=== PATIENT | male | born 1955 | race Caucasian/White ===

== ENCOUNTER 2016-11-15 14:24 | Inpatient (IN) | payer OTHER, MEDICARE ==
[~2016-11-15] VITALS: Ht 99.1 cm; Wt 83.0 kg
[~2016-11-15 14:24] MED LIST: AMIO200T2 PO; ASPI81TA2 PO; ATOM60CA PO; BLOO-140 IN; BUPR-96 PO; CARI350T27 PO; FAMO20TA8 PO; FERR1TAB44 PO; GABA-532 PO; HYDR-548 PO; INSU100V7 SQ
[2016-11-15] MEDS ORDERED: IV NS 0.9% 500 ML IV ONE (14:44)
[2016-11-15] MEDS ORDERED: IV SET PRIMARY PUMP SET 1 EA INFUS.SET MC ONE ×5 (14:44→15:58)
[2016-11-15 14:58] LABS: EOSINOPHILS # (AUTO) 0.5 /CMM (0.0-0.7); EOSINOPHILS % (AUTO) 3.6 % (0.0-6.0)
[2016-11-15] MEDS ORDERED: Magnesium 1GM/D5W 100ML PREMIX 200 ML IV ONE (14:59)
[2016-11-15] MEDS ORDERED: Magnesium 1GM/D5W 100ML PREMIX PIGGYBACK IV ONE (15:00)
[2016-11-15] MEDS ORDERED: AMIODARONE 150 MG/3 ML VIAL IV ONE (15:00)
[2016-11-15] MEDS ORDERED: IV NS 0.9% 500 ML BAG IV ONE (15:00)
[2016-11-15 15:01] LABS: DIFF TOTAL % 100 %; MEAN CORPUSCULAR HEMOGLOBIN 23 PG (26.0-33.0); MEAN CORPUSCULAR HGB CONC 31 g/dl (31.0-36.0); MEAN CORPUSCULAR VOLUME 75 fL (80-96); MONOCYTES # (AUTO) 1.1 /CMM (0.1-1.30); NEUTROPHILS # (AUTO) 11.6 /CMM (1.8-8.9); NEUTROPHILS % (AUTO) 81.4 % (43.0-81.0); PLATELET COUNT (AUTO) 334 /CMM (150-450); RED BLOOD CELL COUNT(AUTO) 5.86 MIL/uL (4.5-6.0); WHITE BLOOD COUNT (AUTO) 14.3 K/uL (4.3-11.0)
[2016-11-15 15:08] LABS: HEMATOCRIT 44 % (39-51); HEMOGLOBIN 13.4 g/dL (13.5-17.5)
[2016-11-15 15:14] LABS: TROPONIN I 0.15 ng/mL (0.00-0.056)
[2016-11-15 15:27] LABS: ALBUMIN 3.8 g/dL (3.4-5.0); BILIRUBIN,DIRECT 0.2 mg/dL (0.0-0.2); BILIRUBIN,TOTAL 0.6 mg/dL (0.2-1.0); CREATININE 1.4 mg/dL (0.6-1.3); INDIRECT BILIRUBIN 0.4 mg/dL (0.0-1.1)
[2016-11-15] MEDS ORDERED: AMIODARONE 900 MG in IV D5W 482 ML IV PRN ×2 (15:30→19:00)
[2016-11-15] MEDS ORDERED: AMIODARONE 150 MG in IV D5W 100 ML IV ONE (15:30)
[2016-11-15 15:33] LABS: POTASSIUM 2.7 mmol/L (3.5-5.1)
[2016-11-15 15:54] LABS: INR 1.08 (0.87-1.13); PROTHROMBIN TIME 11.3 SECS (9.5-12.7)
[2016-11-15] MEDS ORDERED: POTASSIUM CL. PREMIX PERIPHER. 50 ML ONE (15:56)
[2016-11-15] MEDS ORDERED: IV SET PRIMARY 1 EA INFUS.SET MC ONE (15:56)
[2016-11-15] MEDS ORDERED: POTASSIUM CL. PREMIX PERIPHER. 150 ML ONE (15:58)
[2016-11-15] MEDS ORDERED: POTASSIUM CHLORIDE 20 MEQ POWDER PACKET ONE (15:58)
[2016-11-15] MEDS ORDERED: POTASSIUM CHLORIDE 10 MEQ/50 ML PREMIXED IVPB FOR PERIPHERAL LINE IV ONE (16:00)
[2016-11-15] MEDS ORDERED: POTASSIUM CHLORIDE 20 MEQ POWDER PACKET PO ONE (16:00)
[2016-11-15] MEDS ORDERED: ASCO500T9 PO (16:15)
[2016-11-15] MEDS ORDERED: PANT40TA2 PO (16:15)
[2016-11-15] MEDS ORDERED: TRAM50TA2 PO (16:15)
[2016-11-15] MEDS ORDERED: POTA20TA83 PO (16:15)
[2016-11-15] MEDS ORDERED: DOCU-25 PO (16:15)
[2016-11-15] MEDS ORDERED: FERR324T PO (16:15)
[2016-11-15] MEDS ORDERED: ASPI81TA2 PO (16:15)
[2016-11-15] MEDS ORDERED: MAGN200T5 PO (16:15)
[2016-11-15] MEDS ORDERED: CLON0.5T4 PO (16:15)
[2016-11-15] MEDS ORDERED: SIME80TA15 PO (16:15)
[2016-11-15] MEDS ORDERED: ATOR40TA PO (16:15)
[2016-11-15] MEDS ORDERED: DIGO125T PO (16:15)
[2016-11-15] MEDS ORDERED: GABA-532 PO (16:15)
[2016-11-15] MEDS ORDERED: CYAN10009 PO (16:15)
[2016-11-15] MEDS ORDERED: CLOP75TA2 PO (16:15)
[2016-11-15] MEDS ORDERED: TORS100T15 PO (16:15)
[2016-11-15] MEDS ORDERED: METO5TAB7 PO (16:15)
[2016-11-15] MEDS ORDERED: APIX2.5T PO (16:15)
[2016-11-15] MEDS ORDERED: OMEG1CAP PO (16:15)
[2016-11-15] MEDS ORDERED: SPIR50TA PO (16:15)
[2016-11-15] MEDS ORDERED: CHOL100044 PO (16:15)
[2016-11-15 17:39] VITALS: BP 105/74
[2016-11-15 18:00] VITALS: BP 107/79
[2016-11-15 19:00] VITALS: BP 111/78
[2016-11-15 19:00] LABS: ANISOCYTOSIS 1+; EOSINOPHILS % (MANUAL) 3 % (0-4); HYPOCHROMASIA 1+; LYMPHOCYTES % (MANUAL) 11 % (16-48); PLATELET ESTIMATE ADEQUATE
[2016-11-15] MEDS ORDERED: DIGOXIN 0.125 MG TABLET PO SCH (19:00)
[2016-11-15] MEDS ORDERED: ACETAMINOPHEN 325 MG TABLET PO PRN (19:00)
[2016-11-15] MEDS ORDERED: TRAMADOL HCL 50 MG TABLET PO PRN (19:00)
[2016-11-15] MEDS ORDERED: ZOLPIDEM TARTRATE 5 MG TABLET PO PRN (19:00)
[2016-11-15] MEDS ORDERED: ONDANSETRON HCL/PF 4 MG/2 ML VIAL IVP PRN (19:00)
[2016-11-15] MEDS ORDERED: Z GUARD REMEDY 2 OZ OINT TP PRN (19:00)
[2016-11-15] MEDS ORDERED: SIMETHICONE 80 MG TAB.CHEW PO PRN (19:00)
[2016-11-15] MEDS ORDERED: HYDROCODONE/APAP 5/325MG 1 EACH TABLET PO PRN (19:00)
[2016-11-15] MEDS: APIXABAN 2.5 MG TABLET PO SCH ×2 (19:00→21:00)
[2016-11-15 20:00] VITALS: BP 113/73
[2016-11-15 21:00] VITALS: BP 121/82
[2016-11-15 21:25] LABS: CALCIUM, SERUM 8.8 mg/dL (8.5-10.1); CREATININE 1.4 mg/dL (0.6-1.3); POTASSIUM 3.7 mmol/L (3.5-5.1)
[2016-11-15] MEDS ORDERED: clonazePAM 0.5 MG TABLET ONE (21:31)
[2016-11-15] MEDS ORDERED: ASCORBIC ACID 500 MG TABLET ONE (21:31)
[2016-11-15] MEDS ORDERED: ATORVASTATIN 40 MG TABLET ONE (21:32)
[2016-11-15] MEDS ORDERED: CHOLECALCIFEROL 1,000 UNIT TABLET (VIT D3) ONE (21:32)
[2016-11-15] MEDS ORDERED: PANTOPRAZOLE 40 MG TABLET.DR PO ONE (21:32)
[2016-11-15] MEDS ORDERED: CLOPIDOGREL BISULFATE 75 MG TABLET ONE (21:33)
[2016-11-15] MEDS ORDERED: GABAPENTIN 100 MG CAPSULE ONE (21:33)
[2016-11-15] MEDS ORDERED: DIGOXIN 0.125 MG TABLET ONE (21:48)
[2016-11-15] MEDS ORDERED: ASPIRIN 81 MG TAB.CHEW ONE ×2 (21:48→22:49)
[2016-11-15] MEDS ORDERED: DOCUSATE SODIUM 100 MG CAPSULE PO ONE (21:49)
[2016-11-15 22:00] VITALS: BP 112/64
[2016-11-15] MEDS: ASCORBIC ACID 500 MG TABLET PO SCH (22:48)
[2016-11-15] MEDS: CHOLECALCIFEROL 1,000 UNIT TABLET (VIT D3) PO SCH (22:48)
[2016-11-15] MEDS: CLOPIDOGREL BISULFATE 75 MG TABLET PO SCH (22:48)
[2016-11-15] MEDS: ATORVASTATIN 40 MG TABLET PO SCH (22:48)
[2016-11-15] MEDS: clonazePAM 0.5 MG TABLET PO PRN (22:49)
[2016-11-15] MEDS: GABAPENTIN 100 MG CAPSULE PO SCH (22:49)
[2016-11-15] MEDS: PANTOPRAZOLE 40 MG TABLET.DR PO SCH (22:49)
[2016-11-15] MEDS: DOCUSATE SODIUM 100 MG CAPSULE PO SCH (22:49)
[2016-11-15] MEDS: ASPIRIN 81 MG TAB.CHEW PO SCH (22:52)
[2016-11-15] MEDS ORDERED: POTASSIUM CHLORIDE 20 MEQ TAB.PRT.SR PO ONE (23:24)
[2016-11-15] MEDS: POTASSIUM CHLORIDE 20 MEQ TAB.PRT.SR PO SCH (23:28)
[2016-11-16] VITALS (12 sets, daily range): BP systolic 99–118; BP diastolic 62–70
[2016-11-16 00:58] LABS: ABG BASE EXCESS 5.5 mmol/L; ABG HCO3 29.7 mmol/L; ABG PCO2 42.2 mmHg (35.0-45.0); ABG PH 7.466 (7.350-7.450); ABG PO2 73.8 mmHg (75.0-100.0); ABG TOTAL HEMOGLOBIN 13.4 G/dL (13.5-18.0); AaDO2 25.4 mmHg
[2016-11-16 04:35] LABS: DIFF TOTAL % 100 %; EOSINOPHILS # (AUTO) 0.5 /CMM (0.0-0.7); HEMATOCRIT 40 % (39-51); HEMOGLOBIN 12.2 g/dL (13.5-17.5); LYMPHOCYTES % (AUTO) 6.8 % (20.0-44.0); MEAN CORPUSCULAR HEMOGLOBIN 23 PG (26.0-33.0); MEAN CORPUSCULAR HGB CONC 31 g/dl (31.0-36.0); MEAN CORPUSCULAR VOLUME 75 fL (80-96); MONOCYTES # (AUTO) 0.9 /CMM (0.1-1.30); MONOCYTES % (AUTO) 5.9 % (2.0-12.0); NEUTROPHILS # (AUTO) 12.6 /CMM (1.8-8.9); NEUTROPHILS % (AUTO) 84.3 % (43.0-81.0); PLATELET COUNT (AUTO) 290 /CMM (150-450); RED BLOOD CELL COUNT(AUTO) 5.31 MIL/uL (4.5-6.0); WHITE BLOOD COUNT (AUTO) 14.9 K/uL (4.3-11.0)
[2016-11-16 04:55] LABS: CREATININE 1.4 mg/dL (0.6-1.3); PHOSPHORUS 3.8 mg/dL (2.5-4.9); POTASSIUM 3.3 mmol/L (3.5-5.1)
[2016-11-16] MEDS ORDERED: POTASSIUM CHLORIDE 20 MEQ TAB.PRT.SR PO ONE (05:17)
[2016-11-16] MEDS: POTASSIUM CHLORIDE 20 MEQ TAB.PRT.SR PO SCH ×4 (06:50→10:22)
[2016-11-16] MEDS ORDERED: POTASSIUM CL. PREMIX PERIPHER. 50 ML IV SCH (08:00)
[2016-11-16] MEDS: CARVEDILOL 3.125 MG TABLET PO SCH ×2 (09:00→21:00)
[2016-11-16] MEDS ORDERED: AMIODARONE HCL 200 MG TABLET PO SCH ×2 (09:00→17:00)
[2016-11-16] MEDS: ASPIRIN 81 MG TAB.CHEW PO SCH (09:04)
[2016-11-16] MEDS: CLOPIDOGREL BISULFATE 75 MG TABLET PO SCH (09:04)
[2016-11-16] MEDS: GABAPENTIN 100 MG CAPSULE PO SCH ×3 (09:04→16:12)
[2016-11-16] MEDS: CHOLECALCIFEROL 1,000 UNIT TABLET (VIT D3) PO SCH (09:04)
[2016-11-16] MEDS: DOCUSATE SODIUM 100 MG CAPSULE PO SCH ×2 (09:05→16:12)
[2016-11-16] MEDS: PANTOPRAZOLE 40 MG TABLET.DR PO SCH (09:05)
[2016-11-16] MEDS: ASCORBIC ACID 500 MG TABLET PO SCH (09:05)
[2016-11-16] MEDS: APIXABAN 2.5 MG TABLET PO SCH ×2 (09:29→21:54)
[2016-11-16] MEDS: TORSEMIDE 20 MG TABLET PO SCH ×3 (09:29→16:12)
[2016-11-16] MEDS ORDERED: FERROUS GLUCONATE 1 EA TABLET PO SCH ×3 (09:30→13:00)
[2016-11-16] MEDS: AMIODARONE HCL 200 MG TABLET PO SCH ×3 (10:21→16:12)
[2016-11-16] MEDS: DIGOXIN 0.125 MG TABLET PO SCH (12:10)
[2016-11-16] MEDS: FISH OIL 1000 MG PO SCH (15:32)
[2016-11-16] MEDS ORDERED: FEE PK DOSING 1 MIN EA MC ONE (16:02)
[2016-11-16] MEDS: FERROUS GLUCONATE 324 MG PO SCH (16:11)
[2016-11-16] MEDS: MAGNESIUM OXIDE 400 MG TABLET PO SCH ×2 (16:12→16:13)
[2016-11-16] MEDS ORDERED: D5W IV SCH (18:00)
[2016-11-16] MEDS ORDERED: MILRINONE LACTATE IV SCH (18:00)
[2016-11-16] MEDS: METOLAZONE 2.5 MG TABLET PO SCH ×2 (21:51→21:54)
[2016-11-16] MEDS: clonazePAM 0.5 MG TABLET PO PRN (21:52)
[2016-11-16] MEDS: SPIRONOLACTONE 25 MG TABLET PO SCH ×2 (21:52→21:54)
[2016-11-16] MEDS: CYANOCOBALAMIN 500 MCG TABLET PO SCH ×2 (21:52→21:54)
[2016-11-16] MEDS: ATORVASTATIN 40 MG TABLET PO SCH (21:52)
[2016-11-17] VITALS (18 sets, daily range): BP systolic 79–119; BP diastolic 36–74
[2016-11-17 04:42] LABS: DIFF TOTAL % 100 %; EOSINOPHILS # (AUTO) 0.5 /CMM (0.0-0.7); EOSINOPHILS % (AUTO) 3.9 % (0.0-6.0); HEMATOCRIT 38 % (39-51); HEMOGLOBIN 11.9 g/dL (13.5-17.5); LYMPHOCYTES # (AUTO) 0.8 /CMM (0.8-4.8); LYMPHOCYTES % (AUTO) 6.5 % (20.0-44.0); MEAN CORPUSCULAR HEMOGLOBIN 23 PG (26.0-33.0); MEAN CORPUSCULAR HGB CONC 31 g/dl (31.0-36.0); MEAN CORPUSCULAR VOLUME 75 fL (80-96); MONOCYTES # (AUTO) 0.9 /CMM (0.1-1.30); MONOCYTES % (AUTO) 6.9 % (2.0-12.0); NEUTROPHILS # (AUTO) 10.3 /CMM (1.8-8.9); NEUTROPHILS % (AUTO) 82.7 % (43.0-81.0); PLATELET COUNT (AUTO) 250 /CMM (150-450); RED BLOOD CELL COUNT(AUTO) 5.13 MIL/uL (4.5-6.0); WHITE BLOOD COUNT (AUTO) 12.4 K/uL (4.3-11.0)
[2016-11-17 04:51] LABS: ALBUMIN 3.5 g/dL (3.4-5.0); BILIRUBIN,TOTAL 0.9 mg/dL (0.2-1.0); CALCIUM, SERUM 9.4 mg/dL (8.5-10.1); CREATININE 1.4 mg/dL (0.6-1.3); PHOSPHORUS 4.5 mg/dL (2.5-4.9); TOTAL PROTEIN, SERUM 7.2 g/dL (6.4-8.2)
[2016-11-17 04:54] LABS: TROPONIN I 0.195 ng/mL (0.00-0.056)
[2016-11-17 05:53] LABS: HYPOCHROMASIA 1+
[2016-11-17 05:54] LABS: ANISOCYTOSIS 2+; TARGET CELLS 1+; TEAR DROP CELLS 1+
[2016-11-17] MEDS ORDERED: IV SET PRIMARY PUMP SET 1 EA INFUS.SET MC ONE ×3 (08:09→18:02)
[2016-11-17] MEDS: PANTOPRAZOLE 40 MG TABLET.DR PO SCH ×2 (08:12→16:22)
[2016-11-17] MEDS: CHOLECALCIFEROL 1,000 UNIT TABLET (VIT D3) PO SCH (08:12)
[2016-11-17] MEDS: DOCUSATE SODIUM 100 MG CAPSULE PO SCH ×2 (08:12→16:22)
[2016-11-17] MEDS: Magnesium 1GM/D5W 100ML PREMIX 100 ML IV SCH ×4 (08:12→11:51)
[2016-11-17] MEDS: SPIRONOLACTONE 25 MG TABLET PO SCH (08:13)
[2016-11-17] MEDS: CLOPIDOGREL BISULFATE 75 MG TABLET PO SCH (08:13)
[2016-11-17] MEDS: ASPIRIN 81 MG TAB.CHEW PO SCH (08:13)
[2016-11-17] MEDS: CYANOCOBALAMIN 500 MCG TABLET PO SCH (08:13)
[2016-11-17] MEDS: GABAPENTIN 100 MG CAPSULE PO SCH ×3 (08:13→16:22)
[2016-11-17] MEDS: MAGNESIUM OXIDE 400 MG TABLET PO SCH ×2 (08:13→16:22)
[2016-11-17] MEDS: POTASSIUM CHLORIDE 20 MEQ TAB.PRT.SR PO SCH ×5 (08:14→12:32)
[2016-11-17] MEDS: ASCORBIC ACID 500 MG TABLET PO SCH (08:14)
[2016-11-17] MEDS: FISH OIL 1000 MG PO SCH (08:15)
[2016-11-17] MEDS: TORSEMIDE 20 MG TABLET PO SCH ×3 (08:15→16:20)
[2016-11-17] MEDS: FERROUS GLUCONATE 324 MG PO SCH ×3 (08:15→16:21)
[2016-11-17] MEDS: APIXABAN 2.5 MG TABLET PO SCH ×2 (08:15→21:00)
[2016-11-17] MEDS: METOLAZONE 2.5 MG TABLET PO SCH (09:10)
[2016-11-17] MEDS: CARVEDILOL 3.125 MG TABLET PO SCH ×2 (09:10→21:00)
[2016-11-17] MEDS: AMIODARONE HCL 200 MG TABLET PO SCH ×3 (09:11→16:22)
[2016-11-17] MEDS: DIGOXIN 0.125 MG TABLET PO SCH (12:26)
[2016-11-17] MEDS: VANCOMYCIN 0.75 GM in IV D5W 250 ML IV SCH (12:26)
[2016-11-17] MEDS ORDERED: MILRINONE LACTATE IV SCH (16:44)
[2016-11-17] MEDS ORDERED: D5W IV SCH (16:44)
[2016-11-17] MEDS: ATORVASTATIN 40 MG TABLET PO SCH (21:36)
[2016-11-17] MEDS: clonazePAM 0.5 MG TABLET PO PRN (22:13)
[2016-11-18] VITALS (19 sets, daily range): BP systolic 79–127; BP diastolic 39–72
[2016-11-18 06:02] LABS: ALBUMIN 3.5 g/dL (3.4-5.0); BILIRUBIN,TOTAL 0.8 mg/dL (0.2-1.0); CREATININE 1.7 mg/dL (0.6-1.3); PHOSPHORUS 5.1 mg/dL (2.5-4.9); POTASSIUM 3.3 mmol/L (3.5-5.1); TOTAL PROTEIN, SERUM 7.3 g/dL (6.4-8.2)
[2016-11-18] MEDS: POTASSIUM CHLORIDE 20 MEQ TAB.PRT.SR PO SCH ×8 (07:56→23:16)
[2016-11-18] MEDS: ASCORBIC ACID 500 MG TABLET PO SCH (08:31)
[2016-11-18] MEDS: CARVEDILOL 3.125 MG TABLET PO SCH ×2 (08:36→21:00)
[2016-11-18] MEDS: CHOLECALCIFEROL 1,000 UNIT TABLET (VIT D3) PO SCH (08:36)
[2016-11-18] MEDS: METOLAZONE 2.5 MG TABLET PO SCH (08:36)
[2016-11-18] MEDS: CLOPIDOGREL BISULFATE 75 MG TABLET PO SCH (08:36)
[2016-11-18] MEDS: ASPIRIN 81 MG TAB.CHEW PO SCH (08:36)
[2016-11-18] MEDS: DOCUSATE SODIUM 100 MG CAPSULE PO SCH ×2 (08:37→17:25)
[2016-11-18] MEDS: AMIODARONE HCL 200 MG TABLET PO SCH ×3 (08:37→17:39)
[2016-11-18] MEDS: GABAPENTIN 100 MG CAPSULE PO SCH ×3 (08:37→17:25)
[2016-11-18] MEDS: SPIRONOLACTONE 25 MG TABLET PO SCH (08:37)
[2016-11-18] MEDS: CYANOCOBALAMIN 500 MCG TABLET PO SCH (08:37)
[2016-11-18] MEDS: MAGNESIUM OXIDE 400 MG TABLET PO SCH ×2 (08:37→17:25)
[2016-11-18] MEDS: PANTOPRAZOLE 40 MG TABLET.DR PO SCH ×2 (08:37→17:25)
[2016-11-18] MEDS: TORSEMIDE 20 MG TABLET PO SCH ×3 (08:38→17:25)
[2016-11-18] MEDS: FERROUS GLUCONATE 324 MG PO SCH ×3 (08:40→17:25)
[2016-11-18] MEDS: FISH OIL 1000 MG PO SCH (08:40)
[2016-11-18] MEDS: APIXABAN 2.5 MG TABLET PO SCH ×2 (10:04→21:24)
[2016-11-18] MEDS: VANCOMYCIN 0.75 GM in IV D5W 250 ML IV SCH (11:06)
[2016-11-18] MEDS: DIGOXIN 0.125 MG TABLET PO SCH (13:03)
[2016-11-18] MEDS: MILRINONE LACTATE 20 MG in IV D5W 100 ML IV PRN ×2 (17:09→18:15)
[2016-11-18 18:47] LABS: KETONES,URINE NEGATIVE (NEGATIVE); LEUKOCYTE ESTERASE ,URINE NEGATIVE (NEGATIVE); PH,URINE 5.5 (5.0-8.0)
[2016-11-18 18:55] LABS: CREATININE, URINE 30.9 MG/DL (30.0-125.0)
[2016-11-18 18:58] LABS: ADD UA MICROSCOPIC YES
[2016-11-18 19:02] LABS: ADD URINE CULTURE NO; RBC,URINE 2-3/HPF /HPF (0-2); WBC,URINE 0-2 /HPF (0-3)
[2016-11-18] MEDS: ATORVASTATIN 40 MG TABLET PO SCH (21:24)
[2016-11-18] MEDS: clonazePAM 0.5 MG TABLET PO PRN (22:05)
[2016-11-19] VITALS (24 sets, daily range): BP systolic 85–119; BP diastolic 49–96
[2016-11-19] MEDS: MILRINONE LACTATE 20 MG in IV D5W 100 ML IV PRN ×3 (01:28→20:17)
[2016-11-19 01:58] LABS: CALCIUM, SERUM 8.9 mg/dL (8.5-10.1)
[2016-11-19 02:14] LABS: POTASSIUM 5.6 mmol/L (3.5-5.1)
[2016-11-19 04:57] LABS: BASOPHILS % (AUTO) 0.1 % (0.0-2.0); DIFF TOTAL % 100 %; EOSINOPHILS # (AUTO) 0.1 /CMM (0.0-0.7); HEMATOCRIT 39 % (39-51); HEMOGLOBIN 12.1 g/dL (13.5-17.5); LYMPHOCYTES # (AUTO) 0.7 /CMM (0.8-4.8); LYMPHOCYTES % (AUTO) 5.8 % (20.0-44.0); MEAN CORPUSCULAR HEMOGLOBIN 24 PG (26.0-33.0); MEAN CORPUSCULAR HGB CONC 31 g/dl (31.0-36.0); MEAN CORPUSCULAR VOLUME 76 fL (80-96); MONOCYTES # (AUTO) 0.9 /CMM (0.1-1.30); MONOCYTES % (AUTO) 7.3 % (2.0-12.0); NEUTROPHILS # (AUTO) 11.1 /CMM (1.8-8.9); NEUTROPHILS % (AUTO) 85.8 % (43.0-81.0); PLATELET COUNT (AUTO) 234 /CMM (150-450); WHITE BLOOD COUNT (AUTO) 12.9 K/uL (4.3-11.0)
[2016-11-19 05:27] LABS: ALBUMIN 3.4 g/dL (3.4-5.0); BILIRUBIN,TOTAL 0.7 mg/dL (0.2-1.0); CALCIUM, SERUM 8.7 mg/dL (8.5-10.1); CREATININE 1.9 mg/dL (0.6-1.3); PHOSPHORUS 3.8 mg/dL (2.5-4.9); POTASSIUM 4.8 mmol/L (3.5-5.1); TOTAL PROTEIN, SERUM 7.3 g/dL (6.4-8.2)
[2016-11-19] MEDS: POTASSIUM CHLORIDE 20 MEQ TAB.PRT.SR PO SCH ×2 (06:00→21:19)
[2016-11-19] MEDS: TORSEMIDE 20 MG TABLET PO SCH ×3 (08:03→16:31)
[2016-11-19] MEDS: FERROUS GLUCONATE 324 MG PO SCH ×3 (08:04→16:32)
[2016-11-19] MEDS: CLOPIDOGREL BISULFATE 75 MG TABLET PO SCH (08:04)
[2016-11-19] MEDS: APIXABAN 2.5 MG TABLET PO SCH ×2 (08:04→21:17)
[2016-11-19] MEDS: GABAPENTIN 100 MG CAPSULE PO SCH ×3 (08:05→16:32)
[2016-11-19] MEDS: CHOLECALCIFEROL 1,000 UNIT TABLET (VIT D3) PO SCH (08:05)
[2016-11-19] MEDS: SPIRONOLACTONE 25 MG TABLET PO SCH (08:05)
[2016-11-19] MEDS: DOCUSATE SODIUM 100 MG CAPSULE PO SCH ×2 (08:06→16:32)
[2016-11-19] MEDS: PANTOPRAZOLE 40 MG TABLET.DR PO SCH ×2 (08:06→16:32)
[2016-11-19] MEDS: METOLAZONE 2.5 MG TABLET PO SCH (08:06)
[2016-11-19] MEDS: CYANOCOBALAMIN 500 MCG TABLET PO SCH (08:06)
[2016-11-19] MEDS: MAGNESIUM OXIDE 400 MG TABLET PO SCH ×2 (08:06→16:32)
[2016-11-19] MEDS: ASPIRIN 81 MG TAB.CHEW PO SCH (08:07)
[2016-11-19] MEDS: FISH OIL 1000 MG PO SCH (08:07)
[2016-11-19] MEDS: CARVEDILOL 3.125 MG TABLET PO SCH ×2 (08:07→21:00)
[2016-11-19] MEDS: ASCORBIC ACID 500 MG TABLET PO SCH (08:07)
[2016-11-19] MEDS: AMIODARONE HCL 200 MG TABLET PO SCH ×3 (08:08→16:32)
[2016-11-19 10:54] LABS: CALCIUM, SERUM 8.7 mg/dL (8.5-10.1); CREATININE 1.8 mg/dL (0.6-1.3); POTASSIUM 3.8 mmol/L (3.5-5.1)
[2016-11-19] MEDS: DIGOXIN 0.125 MG TABLET PO SCH (12:10)
[2016-11-19] MEDS: VANCOMYCIN 0.75 GM in IV D5W 250 ML IV SCH (12:11)
[2016-11-19] MEDS ORDERED: POTASSIUM CHLORIDE 20 MEQ TAB.PRT.SR PO ONE (14:30)
[2016-11-19 16:50] LABS: CREATININE 1.8 mg/dL (0.6-1.3); POTASSIUM 3.6 mmol/L (3.5-5.1)
[2016-11-19] MEDS: ATORVASTATIN 40 MG TABLET PO SCH (21:19)
[2016-11-20] VITALS (23 sets, daily range): BP systolic 76–110; BP diastolic 37–77
[2016-11-20] MEDS: POTASSIUM CHLORIDE 20 MEQ TAB.PRT.SR PO SCH ×4 (00:09→17:08)
[2016-11-20] MEDS: clonazePAM 0.5 MG TABLET PO PRN ×3 (00:12→17:08)
[2016-11-20 00:59] LABS: CALCIUM, SERUM 8.9 mg/dL (8.5-10.1); CREATININE 2.1 mg/dL (0.6-1.3); POTASSIUM 3.6 mmol/L (3.5-5.1)
[2016-11-20] MEDS: MILRINONE LACTATE 20 MG in IV D5W 100 ML IV PRN ×3 (04:11→20:49)
[2016-11-20 05:16] LABS: ALBUMIN 3.3 g/dL (3.4-5.0); BILIRUBIN,TOTAL 0.5 mg/dL (0.2-1.0); CALCIUM, SERUM 8.8 mg/dL (8.5-10.1); CREATININE 1.9 mg/dL (0.6-1.3); PHOSPHORUS 5.2 mg/dL (2.5-4.9); POTASSIUM 3.1 mmol/L (3.5-5.1)
[2016-11-20 05:17] LABS: BASOPHILS % (AUTO) 0.4 % (0.0-2.0); DIFF TOTAL % 100 %; EOSINOPHILS # (AUTO) 0.3 /CMM (0.0-0.7); EOSINOPHILS % (AUTO) 2.7 % (0.0-6.0); HEMATOCRIT 37 % (39-51); HEMOGLOBIN 11.5 g/dL (13.5-17.5); LYMPHOCYTES % (AUTO) 9.2 % (20.0-44.0); MEAN CORPUSCULAR HEMOGLOBIN 24 PG (26.0-33.0); MEAN CORPUSCULAR HGB CONC 31 g/dl (31.0-36.0); MEAN CORPUSCULAR VOLUME 77 fL (80-96); MONOCYTES % (AUTO) 9.3 % (2.0-12.0); NEUTROPHILS # (AUTO) 8.3 /CMM (1.8-8.9); NEUTROPHILS % (AUTO) 78.4 % (43.0-81.0); PLATELET COUNT (AUTO) 216 /CMM (150-450); RED BLOOD CELL COUNT(AUTO) 4.77 MIL/uL (4.5-6.0); WHITE BLOOD COUNT (AUTO) 10.6 K/uL (4.3-11.0)
[2016-11-20 06:15] LABS: ANISOCYTOSIS 2+; HYPOCHROMASIA 2+
[2016-11-20] MEDS ORDERED: POTASSIUM CHLORIDE 20 MEQ TAB.PRT.SR PO ONE (08:00)
[2016-11-20] MEDS: CHOLECALCIFEROL 1,000 UNIT TABLET (VIT D3) PO SCH (09:06)
[2016-11-20] MEDS: CLOPIDOGREL BISULFATE 75 MG TABLET PO SCH (09:06)
[2016-11-20] MEDS: FISH OIL 1000 MG PO SCH (09:06)
[2016-11-20] MEDS: PANTOPRAZOLE 40 MG TABLET.DR PO SCH ×2 (09:06→17:08)
[2016-11-20] MEDS: GABAPENTIN 100 MG CAPSULE PO SCH ×3 (09:06→17:09)
[2016-11-20] MEDS: TORSEMIDE 20 MG TABLET PO SCH ×3 (09:06→17:10)
[2016-11-20] MEDS: APIXABAN 2.5 MG TABLET PO SCH ×2 (09:06→21:44)
[2016-11-20] MEDS: ASCORBIC ACID 500 MG TABLET PO SCH (09:06)
[2016-11-20] MEDS: DOCUSATE SODIUM 100 MG CAPSULE PO SCH ×2 (09:06→17:11)
[2016-11-20] MEDS: METOLAZONE 2.5 MG TABLET PO SCH (09:07)
[2016-11-20] MEDS: CARVEDILOL 3.125 MG TABLET PO SCH ×2 (09:07→21:00)
[2016-11-20] MEDS: FERROUS GLUCONATE 324 MG PO SCH ×3 (09:08→17:10)
[2016-11-20] MEDS: ASPIRIN 81 MG TAB.CHEW PO SCH (09:08)
[2016-11-20] MEDS: MAGNESIUM OXIDE 400 MG TABLET PO SCH ×2 (09:08→17:09)
[2016-11-20] MEDS: CYANOCOBALAMIN 500 MCG TABLET PO SCH (09:08)
[2016-11-20] MEDS: AMIODARONE HCL 200 MG TABLET PO SCH ×3 (09:08→17:08)
[2016-11-20] MEDS: VANCOMYCIN 0.75 GM in IV D5W 250 ML IV SCH (12:17)
[2016-11-20 14:11] LABS: CALCIUM, SERUM 8.9 mg/dL (8.5-10.1); CREATININE 1.8 mg/dL (0.6-1.3); POTASSIUM 4.9 mmol/L (3.5-5.1)
[2016-11-20] MEDS: DIGOXIN 0.125 MG TABLET PO SCH (14:36)
[2016-11-20] MEDS ORDERED: CARV3.122 PO (15:29)
[2016-11-20] MEDS ORDERED: AMIO200T7 PO (15:29)
== END 2016-11-20 22:10 | disposition home or self-care (01) | DRG 196 ==
LOC: ER 15:13 → ICU 17:07
PROVIDERS: ADMIT Internal Medicine; ATTEND Internal Medicine
DX: I49.01 Ventricular fibrillation (principal); I21.4 Non-ST elevation (NSTEMI) myocardial infarction; N17.0 Acute kidney failure with tubular necrosis; I11.0 Hypertensive heart disease with heart failure; I50.43 Acute on chronic combined systolic (congestive) and diastolic (congestive) heart failure; K21.9 Gastro-esophageal reflux disease without esophagitis; I25.10 Atherosclerotic heart disease of native coronary artery without angina pectoris; E87.6 Hypokalemia; F32.9 Major depressive disorder, single episode, unspecified; Z87.891 Personal history of nicotine dependence; Z89.611 Acquired absence of right leg above knee; Z89.612 Acquired absence of left leg above knee; G62.9 Polyneuropathy, unspecified; E87.4 Mixed disorder of acid-base balance; E11.69 Type 2 diabetes mellitus with other specified complication
CPT/HCPCS: 36415; 36600; 71010-TC; 76770-TC; 80048-TC; 80053-TC; 80061-TC; 80076-TC; 80162-TC; 80202-TC; 81000-TC; 82570-TC; 82962-TC; 83735-TC; 83880; 84100-TC; 84484-TC; 85025-TC; 85730-TC; 87040-TC; 87081-TC; A4606; J0282; J2260; J2405; J3370; J3475; J3480; J7040; J7060; Z7610

== ENCOUNTER 2016-12-24 01:16 | Inpatient (IN) | payer OTHER, MEDICARE ==
[2016-12-24] VITALS (28 sets, daily range): BP systolic 80–125; BP diastolic 57–97
[~2016-12-24] VITALS: Ht 165.1 cm; Wt 76.7 kg
[~2016-12-24 01:16] MED LIST changes: -AMIO200T2 PO; +AMIO200T7 PO; +APIX2.5T PO; +ASCO500T9 PO; -ATOM60CA PO; +ATOR40TA PO; -BLOO-140 IN; -BUPR-96 PO; -CARI350T27 PO; +CARV3.122 PO; +CHOL100044 PO; +CLON0.5T4 PO; +CLOP75TA2 PO; +CYAN10009 PO; +DIGO125T PO; +DOCU-25 PO; -FAMO20TA8 PO; -FERR1TAB44 PO; +FERR324T PO; -HYDR-548 PO; -INSU100V7 SQ; +MAGN200T5 PO; +METO5TAB7 PO; +OMEG1CAP PO; +PANT40TA2 PO; +POTA20TA83 PO; +SIME80TA15 PO; +TORS100T15 PO; +TRAM50TA2 PO
--- NOTE | 2016-12-24 01:17 | NUR ---
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 pt denies CP, n/v. NAD noted at this time. He is on a continuous milrinone pump, takes digoxin for HF. pt ambulated to er bed, nad noted, skin warm and dry, rr even and unlabored. will continue to monitor
--- NOTE | 2016-12-24 01:20 | NUR ---
noted sub clavicular right central venous catheter in place
[2016-12-24 01:49] LABS: EOSINOPHILS # (AUTO) 0.7 /CMM (0.0-0.7); EOSINOPHILS % (AUTO) 5.5 % (0.0-6.0); HEMATOCRIT 50 % (39-51); HEMOGLOBIN 16.3 g/dL (13.5-17.5); LYMPHOCYTES # (AUTO) 1.2 /CMM (0.8-4.8); LYMPHOCYTES % (AUTO) 9.5 % (20.0-44.0); MEAN CORPUSCULAR HEMOGLOBIN 26 PG (26.0-33.0); MEAN CORPUSCULAR HGB CONC 33 g/dl (31.0-36.0); MEAN CORPUSCULAR VOLUME 81 fL (80-96); MONOCYTES % (AUTO) 7.9 % (2.0-12.0); NEUTROPHILS # (AUTO) 10.1 /CMM (1.8-8.9); NEUTROPHILS % (AUTO) 77.1 % (43.0-81.0); PLATELET COUNT (AUTO) 239 /CMM (150-450); RDW COEFFICIENT OF VARIATION 25.2 (11.5-15.0); WHITE BLOOD COUNT (AUTO) 13.1 K/uL (4.3-11.0)
[2016-12-24 01:59] LABS: CALCIUM, SERUM 9.2 mg/dL (8.5-10.1); CREATININE 1.6 mg/dL (0.6-1.3); POTASSIUM 3.9 mmol/L (3.5-5.1)
[2016-12-24 02:13] LABS: TROPONIN I 0.114 ng/mL (0.00-0.056)
[2016-12-24] MEDS ORDERED: ASPIRIN 325 MG TABLET ONE (02:21)
[2016-12-24] MEDS ORDERED: Magnesium 1GM/D5W 100ML PREMIX 100 ML IV ONE (02:22)
[2016-12-24] MEDS ORDERED: IV SET PRIMARY PUMP SET 1 EA INFUS.SET MC ONE ×2 (02:22→08:53)
[2016-12-24] MEDS ORDERED: ASPIRIN 325 MG TABLET PO ONE (02:30)
[2016-12-24] MEDS ORDERED: Magnesium 1GM/D5W 100ML PREMIX PIGGYBACK IV ONE (02:30)
--- NOTE | 2016-12-24 02:50 | NUR ---
SENIOR DESIGN ENGINEER ADMITTING NOTES RECEIVED IN BED VIA 2 EMT VIA [facility] AT 0250 ALERT AND VERBALLY RESPONSIVE; DENIES ANY PAIN OR DISTRESS , RESPONDS APPROPRIATELY TO VERBAL STIMULI; RESPIRATIONS EVEN, UNLABORED BREATH SOUNDS CLEAR TO AUSCULTATION THROUGHOUT ALL LUNG JURADO, APICAL PULSE REGULAR RATE AND RHYTHM; ABDOMEN SOFT AND NOT DISTENDED, NO S/S OF BLEEDING NOTED. NO COMPLAINS OF CHEST PAIN, NO NAUSEA, NO VOMITING, NO HEADACHE, VS STABLE, PERRLA, GOOD SKIN CARE PROVIDED. KEPT CLEAN DRY AND COMFORTABLE, SUB CLAVICULAR RIGHT CENTRAL VENOUS CATH INTACT WITH NO S.S OF INFILTRATION NOTED. NEEDS ATTENDED AND ANTICIPATED CAREFUL HEAD TO TOE ASSESSMENT WAS DONE, SKIN IS INTACT NO WOUNDS. SAFE HAZARD FREE ENVIRONMENT PROVIDED, ON LOW BED TO ENSURE SAFETY, CALL LIGHT WITHIN EASY TO REACH, INSTRUCTED TO CALL FOR ANY NEEDS OR TO REQUEST ASSISTANCE BEFORE ATTEMPTING TO GET UP. WILL CONTINUE TO MONITOR
[2016-12-24 02:54] LABS: INR 1.02 (0.87-1.13)
--- NOTE | 2016-12-24 02:58 | NUR ---
transported pt to tele bed without incident
[2016-12-24] MEDS ORDERED: MAG HYDROX/AL HYDROX/SIMETH 30 ML UDC PO PRN (03:00)
[2016-12-24] MEDS ORDERED: ACETAMINOPHEN 325 MG TABLET PO PRN (03:00)
[2016-12-24] MEDS ORDERED: TRAMADOL HCL 50 MG TABLET PO SCH (03:00)
[2016-12-24] MEDS ORDERED: ONDANSETRON HCL/PF 4 MG/2 ML VIAL IVP PRN (03:00)
[2016-12-24] MEDS ORDERED: SIMETHICONE 80 MG TAB.CHEW PO PRN (03:00)
[2016-12-24] MEDS ORDERED: Z GUARD REMEDY 2 OZ OINT TP PRN (03:00)
[2016-12-24] MEDS ORDERED: ZOLPIDEM TARTRATE 5 MG TABLET PO PRN (03:00)
[2016-12-24] MEDS ORDERED: MAGNESIUM HYDROXIDE 30 ML UDC PO PRN (03:00)
[2016-12-24] MEDS ORDERED: POTASSIUM CHLORIDE 20 MEQ TAB.PRT.SR PO ONE ×2 (04:06→06:00)
[2016-12-24] MEDS ORDERED: DOXY150T PO (04:10)
[2016-12-24] MEDS ORDERED: AMIO100T4 PO (04:10)
[2016-12-24] MEDS ORDERED: MILR20PI IV (04:10)
--- NOTE | 2016-12-24 05:00 | NUR ---
RN/ICU- RECEIVED PT. FROM [facility] TELE BY BED PER ACLS PROTOCOL. NURSING FOCUS ALTERED CARDIAC TISSUE PERFUSION AND CARDIAC ARRHYTHMIA SECONDARY TO DIAGNOSIS OF CHEST PAIN. ROUTINE ICU ADMISSION CARE INITIATED. PT. IS AWAKE, ALERT, EXPRESSIVE OF NEEDS. BREATHING COMES EASY TO ROOM AIR, SATS.-94%. EKG SR W/ HR-85/MIN. BP-90/64. W/ ONGOING MILRINONE DRIP AT 0.5MCG/KG/MIN. VIA R SC TUNNELED CATH., PT'S. OWN HOME MED.AFEBRILE. HE DENIES PAIN. AT THE BEDSIDE.
--- NOTE | 2016-12-24 05:00 | NUR ---
PATIENT TRANSPORTED 1 SECOND WORKER 1 RN VIA HIS BED TO HIS ICU ROOM PER MD ORDER DR. GOODMAN. RECEIVED BY FORM PRESSER WAAQR. ALERT AND VERBALLY X 4, RESPONSIVE DENIES PAIN OR DISTRESS, RESPONDS APPROPRIATELY TO VERBAL STIMULI, RESPIRATIONS EVEN UNLABORED BREATH SOUNDS APICAL PULSE REGULAR; ATTACH TO MONITOR UPON TRANSPORTATION SR 85'S. PATIENT IN STABLE CONDITION WITH NO SOB NO S/S OF DISTRESS NO NAUSEA AND VOMITING NO HEADACHE NO PAIN, NO COMPLAIN. WITH US. EXPLAINED WHY HE SHOULD BE TRANSFERRED, AND PATIENT VERBALIZED UNDERSTANDING AND APPRECIATIVE.
--- NOTE | 2016-12-24 05:30 | NUR ---
4:05 AM CHARGE NURSE WAS NOTIFIED PATIENT HAVE OWN MILRINONE DRIP AT BEDSIDE. MD WAS PAGED AT 04:20 AM REGARDING CLARIFICATION OF MEDICATION PATIENT HAS ONGOING MILRINONE DRIP, HAS THERE OWN EQUIPMENT AT BEDSIDE. AT BEDSIDE, SPOKE TO MD 4:45 AM PROTOCOL INITIATED RECEIVED ORDER TO TRANSFER PATIENT TO ICU NOTED AND CARRIED OUT PATIENT SINUS RHYTHM SR 87'S 04:46 AM CALLED ICU TO GIVE REPORT TO WAQAR GONZÁLES 05:00 AM PATIENT WAS TRANSPORTED TO HIS ROOM TO ICU WITHOUT INCIDENT AND PATIENT IN STABLE CONDITION
[2016-12-24] MEDS ORDERED: POTASSIUM CHLORIDE 20 MEQ TAB.PRT.SR PO SCH (06:00)
[2016-12-24] MEDS: CLOPIDOGREL BISULFATE 75 MG TABLET PO SCH (08:47)
[2016-12-24] MEDS: ASPIRIN 81 MG TAB.CHEW PO SCH (08:47)
[2016-12-24] MEDS: MAGNESIUM OXIDE 400 MG TABLET PO SCH ×2 (08:47→17:43)
[2016-12-24] MEDS: ASCORBIC ACID 500 MG TABLET PO SCH (08:47)
[2016-12-24] MEDS: DOCUSATE SODIUM 100 MG CAPSULE PO SCH ×2 (08:47→17:43)
[2016-12-24] MEDS: GABAPENTIN 100 MG CAPSULE PO SCH ×3 (08:47→17:43)
[2016-12-24] MEDS: AMIODARONE HCL 200 MG TABLET PO SCH ×3 (08:47→17:44)
[2016-12-24] MEDS: CHOLECALCIFEROL 1,000 UNIT TABLET (VIT D3) PO SCH (08:47)
[2016-12-24] MEDS: CYANOCOBALAMIN 500 MCG TABLET PO SCH (08:48)
[2016-12-24] MEDS: CARVEDILOL 3.125 MG TABLET PO SCH ×2 (08:48→21:00)
[2016-12-24] MEDS: METOLAZONE 2.5 MG TABLET PO SCH (08:48)
[2016-12-24] MEDS: Magnesium 1GM/D5W 100ML PREMIX 100 ML IV SCH ×3 (08:58→11:07)
[2016-12-24] MEDS ORDERED: Medication Not On Formulary EA (Omega-3 Fatty Acids/Fish Oil (Fish Oil 1,000 Mg Capsule) PO SCH (09:00)
[2016-12-24] MEDS ORDERED: DEXTROSE 50%-WATER 50 ML DISP.SYRIN IV PRN ×3 (11:00→12:00)
[2016-12-24] MEDS ORDERED: INSULIN REGULAR, HUMAN 100 UNIT/ML 3 ML VIAL SQ PRN ×2 (11:00→11:30)
[2016-12-24] MEDS ORDERED: INSULIN GLARGINE, 100 UNIT/ML CARTRIDGE SQ SCH (11:00)
[2016-12-24] MEDS ORDERED: *INSULIN REGULAR(HUMULIN R)HUM 100 UNIT/ML VIAL SQ PRN (11:00)
[2016-12-24] MEDS: APIXABAN 2.5 MG TABLET PO SCH ×2 (11:53→21:19)
[2016-12-24] MEDS ORDERED: BLOOD SUGAR DIAGNOSTIC 1 EACH STRIP IN SCH ×2 (12:00)
[2016-12-24] MEDS: BLOOD SUGAR DIAGNOSTIC 1 EACH STRIP IN SCH ×3 (12:22→21:20)
[2016-12-24] MEDS ORDERED: MISCELLANEOUS MED 1 EA EA XX ONE (12:30)
[2016-12-24] MEDS ORDERED: D5W IV SCH ×6 (13:00→18:30)
[2016-12-24] MEDS ORDERED: MILRINONE LACTATE IV SCH ×6 (13:00→18:30)
[2016-12-24] MEDS: FERROUS GLUCONATE 324 MG PO SCH ×2 (13:17→17:44)
[2016-12-24] MEDS: INSULIN DETEMIR 100 UNIT/ML CARTRIDGE SQ SCH (13:18)
[2016-12-24] MEDS: TORSEMIDE 20 MG TABLET PO SCH ×2 (13:18→17:46)
--- NOTE | 2016-12-24 13:20 | NUR ---
WOUND CARE CONSULT: PATIENT SEEN AND SKIN ASSESSMENT DONE. PATIENT ALERT,ORIENTED, BILATERAL AKA WITH HEALED INCISIONS INTACT, CLEAN AND DRY. PATIENT INDEPENDENT WITH BED MOBILITY, JERILYN 20, CONTINENT. PATIENT PRESENTS ON ADMISSION WITH SKIN INTACT. RECOMMENDATIONS TO KEEP SKIN CLEAN AND DRY, MOISTURE PROTECTION WITH Z GUARD PRN ORDERED DISCUSSED WITH NURSING STAFF. MD IN AGREEMENT WITH PLAN OF CARE.
[2016-12-24] MEDS: DIGOXIN 0.125 MG TABLET PO SCH (13:21)
--- NOTE | 2016-12-24 14:38 | NUR ---
DATA COLLECTOR NOTE 0720: Received patient resting with eyes close, easily aroused. A/IOx4. No c/o discomfort at this time. No respiratory distress, tolerated room air. With B AKA. RSC cath intact, Milrinone ongoing as ordered via pump. SR 70's on the monitor. Skin is intact. Able to use urinals, noted with clear yellow urine. Afebrile, SBP 90's. Able to use call light. 1400: S/E by Dr. Tolentino in am, added Mg supplement. S/E by Valdez PULP OPERATOR and made aware for the Mg 1.7 before giving 3 bags. Valdez PULP OPERATOR and marketing assistant retail division aware for the episode of BS 407, 10 units of RI given, repeated, 402, 25 Detemir given per PULP OPERATOR. Patient just had his meal. at bedside, patient and aware for the POC. given home meds and placed to pharmacy. said patient has supply for Milrinone and said no need to order from pharmacy, she will bring about 1730.
[2016-12-24 14:45] LABS: MAGNESIUM 2.4 mg/dL (1.8-2.4); TROPONIN I 0.116 ng/mL (0.00-0.056)
[2016-12-24] MEDS ORDERED: SET PCA INFUSE SET 1 EA INFUS.SET MC ONE (15:45)
[2016-12-24] MEDS: INSULIN REGULAR, HUMAN 100 UNIT/ML 3 ML VIAL SQ PRN ×2 (18:04→21:29)
[2016-12-24] MEDS: MILRINONE LACTATE IV SCH (18:08)
[2016-12-24] MEDS: D5W IV SCH (18:08)
[2016-12-24] MEDS ORDERED: INSULIN DETEMIR 100 UNIT/ML CARTRIDGE SQ STA (19:09)
--- NOTE | 2016-12-24 19:24 | NUR ---
PATIENT SCHEDULER NOTE Made Valdez WOOD aware for 427 BS recheck, wit order of 20 units Levemir, awaiting for pharmacy to verify, endorsed to next shift. Also Dr. Rico aware, said to do another accucheck at 9pm, for HS.
[2016-12-24] MEDS: clonazePAM 0.5 MG TABLET PO PRN (21:19)
[2016-12-24] MEDS: DOXYCYCLINE HYCLATE (100 MG) 100 MG TABLET PO SCH (21:19)
[2016-12-24] MEDS: ATORVASTATIN 40 MG TABLET PO SCH (21:20)
[2016-12-25] VITALS (32 sets, daily range): BP systolic 90–134; BP diastolic 27–98
[2016-12-25 01:05] LABS: BASOPHILS % (AUTO) 0.3 % (0.0-2.0); EOSINOPHILS # (AUTO) 0.8 /CMM (0.0-0.7); EOSINOPHILS % (AUTO) 6.1 % (0.0-6.0); HEMATOCRIT 49 % (39-51); LYMPHOCYTES % (AUTO) 7.3 % (20.0-44.0); MEAN CORPUSCULAR HEMOGLOBIN 27 PG (26.0-33.0); MEAN CORPUSCULAR HGB CONC 33 g/dl (31.0-36.0); MEAN CORPUSCULAR VOLUME 81 fL (80-96); MONOCYTES # (AUTO) 1.3 /CMM (0.1-1.30); MONOCYTES % (AUTO) 9.6 % (2.0-12.0); NEUTROPHILS # (AUTO) 10.3 /CMM (1.8-8.9); NEUTROPHILS % (AUTO) 76.7 % (43.0-81.0); PLATELET COUNT (AUTO) 217 /CMM (150-450); RDW COEFFICIENT OF VARIATION 24.9 (11.5-15.0); RED BLOOD CELL COUNT(AUTO) 6.06 MIL/uL (4.5-6.0); WHITE BLOOD COUNT (AUTO) 13.4 K/uL (4.3-11.0)
[2016-12-25 01:13] LABS: CALCIUM, SERUM 9.3 mg/dL (8.5-10.1); CREATININE 1.7 mg/dL (0.6-1.3)
[2016-12-25] MEDS ORDERED: POTASSIUM CL. PREMIX PERIPHER. 200 ML ONE (01:16)
[2016-12-25 01:17] LABS: MAGNESIUM 1.8 mg/dL (1.8-2.4)
[2016-12-25] MEDS ORDERED: Magnesium 1GM/D5W 100ML PREMIX 200 ML IV ONE (01:17)
[2016-12-25] MEDS ORDERED: POTASSIUM CHLORIDE 20 MEQ TAB.PRT.SR PO ONE ×2 (01:18→01:30)
[2016-12-25] MEDS ORDERED: IV SET PRIMARY PUMP SET 1 EA INFUS.SET MC ONE (01:19)
[2016-12-25 01:21] LABS: TROPONIN I 0.145 ng/mL (0.00-0.056)
[2016-12-25] MEDS: Magnesium 1GM/D5W 100ML PREMIX 100 ML IV SCH ×2 (01:24→02:27)
[2016-12-25] MEDS: POTASSIUM CL. PREMIX PERIPHER. 50 ML IV SCH ×4 (01:25→04:18)
[2016-12-25] MEDS: HYDROCODONE/APAP 5/325MG 1 EACH TABLET PO PRN ×2 (01:31→08:32)
--- NOTE | 2016-12-25 02:13 | NUR ---
PT HAD 6TH SHOCK, RHYTHM TURNS TO VFIB/VTACH AND PACEMAKER SHOCKS PT BACK INTO SINUS RHYTHM. HE FEELS HOT FLASH AND THEN GOES TO VFIB/VTACH. DR NOEL NOTIFIED, BMP, MAG, PHOS CHECKED, MG 1.8 REPLACED WITH 1.8 AND K 3.0 REPLACED WITH 40 MEQ KCL IV AND 40 MEQ KDUR PO
--- NOTE | 2016-12-25 02:20 | NUR ---
PT GIVEN NORCO 5/325 FOR PAIN. PT FEELS MORE RELAXED AND COMFORTABLE
--- NOTE | 2016-12-25 02:30 | NUR ---
PTS MOTHER WANTS TRANSFER TO [facility], WHERE PT GOT PACEMAKER PLACED 4 MONTHS AGO. WILL NOTIFY DOMESTIC VIOLENCE ADVOCATE
--- NOTE | 2016-12-25 03:54 | NUR ---
MEDICAL RECEPTIONIST - NOTES - RECEIVED PT IN BED, AWAKE, ALERT AND ORIENTED X4, PT DENIES PAIN, NO DISCOMFORT AT THIS TIME. PT IS ON ROOM AIR TOLERATING WELL. PT HAS BILATERAL AKA. PT HAS R SUBCLAV CATH INTACT, PT HAS MILRINONE INFUSING VIA HOME PUMP 0.5 MCG/KG/MIN. SR 70'S ON THE MONITOR. SKIN IS INTACT. PT IS ABLE TO USE URINAL, ADEQUATE URINE OUTPUT, CLEAR YELLOW COLOR. AFEBRILE, BP WNL. PT IS ABLE TO USE CALL LIGHT. WILL CONTINUE TO MONITOR
[2016-12-25 05:02] LABS: BASOPHILS % (AUTO) 0.1 % (0.0-2.0); EOSINOPHILS # (AUTO) 0.7 /CMM (0.0-0.7); EOSINOPHILS % (AUTO) 4.4 % (0.0-6.0); HEMATOCRIT 51 % (39-51); HEMOGLOBIN 16.3 g/dL (13.5-17.5); LYMPHOCYTES # (AUTO) 0.8 /CMM (0.8-4.8); LYMPHOCYTES % (AUTO) 5.4 % (20.0-44.0); MEAN CORPUSCULAR HEMOGLOBIN 27 PG (26.0-33.0); MEAN CORPUSCULAR HGB CONC 32 g/dl (31.0-36.0); MEAN CORPUSCULAR VOLUME 82 fL (80-96); MONOCYTES # (AUTO) 1.1 /CMM (0.1-1.30); MONOCYTES % (AUTO) 7.5 % (2.0-12.0); NEUTROPHILS # (AUTO) 12.6 /CMM (1.8-8.9); NEUTROPHILS % (AUTO) 82.6 % (43.0-81.0); PLATELET COUNT (AUTO) 220 /CMM (150-450); RED BLOOD CELL COUNT(AUTO) 6.13 MIL/uL (4.5-6.0); WHITE BLOOD COUNT (AUTO) 15.2 K/uL (4.3-11.0)
[2016-12-25 05:11] LABS: CALCIUM, SERUM 9.4 mg/dL (8.5-10.1); CREATININE 1.6 mg/dL (0.6-1.3); MAGNESIUM 2.6 mg/dL (1.8-2.4); PHOSPHORUS 4.1 mg/dL (2.5-4.9); POTASSIUM 4.2 mmol/L (3.5-5.1)
[2016-12-25] MEDS ORDERED: INSULIN GLARGINE, 100 UNIT/ML CARTRIDGE SQ SCH (07:30)
[2016-12-25] MEDS: FERROUS GLUCONATE 324 MG PO SCH ×3 (08:04→17:55)
[2016-12-25] MEDS: GABAPENTIN 100 MG CAPSULE PO SCH ×3 (08:05→17:55)
[2016-12-25] MEDS: CHOLECALCIFEROL 1,000 UNIT TABLET (VIT D3) PO SCH (08:05)
[2016-12-25] MEDS: CYANOCOBALAMIN 500 MCG TABLET PO SCH (08:05)
[2016-12-25] MEDS: APIXABAN 2.5 MG TABLET PO SCH ×2 (08:05→21:44)
[2016-12-25] MEDS: DOXYCYCLINE HYCLATE (100 MG) 100 MG TABLET PO SCH ×2 (08:05→21:44)
[2016-12-25] MEDS: CLOPIDOGREL BISULFATE 75 MG TABLET PO SCH (08:05)
[2016-12-25] MEDS: TORSEMIDE 20 MG TABLET PO SCH ×3 (08:05→17:55)
[2016-12-25] MEDS: ASCORBIC ACID 500 MG TABLET PO SCH (08:05)
[2016-12-25] MEDS: DOCUSATE SODIUM 100 MG CAPSULE PO SCH ×2 (08:05→17:55)
[2016-12-25] MEDS: ASPIRIN 81 MG TAB.CHEW PO SCH (08:05)
[2016-12-25] MEDS: AMIODARONE HCL 200 MG TABLET PO SCH ×3 (08:06→17:00)
[2016-12-25] MEDS: BLOOD SUGAR DIAGNOSTIC 1 EACH STRIP IN SCH ×4 (08:07→21:45)
[2016-12-25] MEDS: CARVEDILOL 3.125 MG TABLET PO SCH ×2 (08:07→21:00)
[2016-12-25] MEDS: MAGNESIUM OXIDE 400 MG TABLET PO SCH ×2 (08:08→17:55)
[2016-12-25] MEDS: INSULIN DETEMIR 100 UNIT/ML CARTRIDGE SQ SCH (08:10)
[2016-12-25] MEDS: METOLAZONE 2.5 MG TABLET PO SCH (08:11)
[2016-12-25] MEDS: INSULIN REGULAR, HUMAN 100 UNIT/ML 3 ML VIAL SQ PRN ×4 (08:12→21:47)
[2016-12-25] MEDS: DIGOXIN 0.125 MG TABLET PO SCH (12:07)
[2016-12-25] MEDS: POTASSIUM CHLORIDE 20 MEQ TAB.PRT.SR PO SCH ×2 (12:07→17:55)
[2016-12-25 13:26] LABS: CALCIUM, SERUM 9.5 mg/dL (8.5-10.1); CREATININE 1.6 mg/dL (0.6-1.3); MAGNESIUM 2.2 mg/dL (1.8-2.4); POTASSIUM 3.5 mmol/L (3.5-5.1)
[2016-12-25] MEDS: MILRINONE LACTATE IV SCH (17:56)
[2016-12-25] MEDS: D5W IV SCH (17:56)
--- NOTE | 2016-12-25 18:50 | NUR ---
WEB PRESS OPERATOR HELPER OFFSET NOTE 0720: Received patient awake, A/Ox4, on O2 via mask, placed on 2LPM of O2 via NC, will titrate as tolerated. With RCW central line intact, on Milrinone via CADD infusing as ordered. SR occasional junctional 70-80's on the monitor. Able to use urinals. Gathered BS, given RI as ordered. S/E by Dr. Tolentino, with order for KCl q6 and will do BMP and Mg q8, made patient aware for the POC, verbalized understanding. 1630: S/E by Dr. England, reviewed labs and glucose, with insulin adjustments ordered. 1800: No any significant changes noted at this time. No episode of AICD shock for the shift. Will continue to monitor arrhythmias and electrolytes.
--- NOTE | 2016-12-25 20:00 | NUR ---
Received patient AA&O X 4.VS stable.Respiration even and unlabored.Saturation 93%-96% om RA.SR with on and off Junctional rhythm 60's-70's.Milrinone infusing via CADD pump per order via right upper chest central line.Site intact.Denies pain or any discomfort.Voiding per urinal.Plan of care discussed with patient.Verbalized understanding.Safety checked with call light at bedside within easy reach.Continue to monitor.
[2016-12-25 21:30] LABS: CALCIUM, SERUM 9.2 mg/dL (8.5-10.1); CREATININE 1.6 mg/dL (0.6-1.3); MAGNESIUM 1.9 mg/dL (1.8-2.4); POTASSIUM 3.9 mmol/L (3.5-5.1)
[2016-12-25] MEDS: ATORVASTATIN 40 MG TABLET PO SCH (21:44)
[2016-12-25] MEDS: clonazePAM 0.5 MG TABLET PO PRN (23:10)
[2016-12-26] VITALS (44 sets, daily range): BP systolic 75–133; BP diastolic 21–84
[2016-12-26] MEDS: POTASSIUM CHLORIDE 20 MEQ TAB.PRT.SR PO SCH ×8 (00:10→23:07)
[2016-12-26] MEDS ORDERED: Magnesium 1GM/D5W 100ML PREMIX 200 ML IV ONE ×2 (00:47→22:44)
[2016-12-26] MEDS ORDERED: IV SET PRIMARY PUMP SET 1 EA INFUS.SET MC ONE ×2 (00:47→22:45)
[2016-12-26] MEDS ORDERED: IV D5W 250 ML IV ONE (00:48)
[2016-12-26] MEDS ORDERED: SECONDARY IV SET 1 EA INFUS.SET MC ONE (00:48)
[2016-12-26] MEDS ORDERED: IV NS 0.9% 250 ML IV ONE (00:56)
[2016-12-26] MEDS ORDERED: Magnesium 1 GM/2 ML VIAL IV ONE (01:00)
--- NOTE | 2016-12-26 04:00 | NUR ---
Patient resting.Klonopin administered as requested.Able to sleep for several hours. Magnesium level 1.9 called to with orders and carried out.2 GM magnesium IVPB given.
[2016-12-26 04:46] LABS: EOSINOPHILS # (AUTO) 0.6 /CMM (0.0-0.7); EOSINOPHILS % (AUTO) 4.2 % (0.0-6.0); HEMATOCRIT 47 % (39-51); HEMOGLOBIN 15.7 g/dL (13.5-17.5); LYMPHOCYTES % (AUTO) 7.1 % (20.0-44.0); MEAN CORPUSCULAR HEMOGLOBIN 27 PG (26.0-33.0); MEAN CORPUSCULAR HGB CONC 33 g/dl (31.0-36.0); MEAN CORPUSCULAR VOLUME 81 fL (80-96); MONOCYTES % (AUTO) 7.2 % (2.0-12.0); NEUTROPHILS # (AUTO) 11.4 /CMM (1.8-8.9); NEUTROPHILS % (AUTO) 81.5 % (43.0-81.0); PLATELET COUNT (AUTO) 204 /CMM (150-450); RDW COEFFICIENT OF VARIATION 24.4 (11.5-15.0); RED BLOOD CELL COUNT(AUTO) 5.83 MIL/uL (4.5-6.0)
[2016-12-26 04:57] LABS: CALCIUM, SERUM 9.1 mg/dL (8.5-10.1); CREATININE 1.5 mg/dL (0.6-1.3); MAGNESIUM 2.5 mg/dL (1.8-2.4); PHOSPHORUS 4.2 mg/dL (2.5-4.9); POTASSIUM 3.2 mmol/L (3.5-5.1)
--- NOTE | 2016-12-26 06:00 | NUR ---
Patient sleeping. AM labs resulted.K+ level 3.2 covered with K-DUR 60 meq po as scheduled dose. Unable to get patient weight.Bed wt reading negative 2.5 need to be zeroed.Will endorse to AM shift RN.All needs anticipated and met.No distress noted.
--- NOTE | 2016-12-26 07:14 | NUR ---
Patient still sleeping at this time.Report given to Mary Perea RN and take patient wt.this morning. Also Betty charge hand made aware.
[2016-12-26] MEDS: BLOOD SUGAR DIAGNOSTIC 1 EACH STRIP IN SCH ×4 (08:20→22:04)
[2016-12-26] MEDS: INSULIN LISPRO/ASPART 100 UNIT/ML CARTRIDGE SQ SCH ×3 (08:20→17:57)
[2016-12-26] MEDS: AMIODARONE HCL 200 MG TABLET PO SCH ×3 (09:00→17:13)
[2016-12-26] MEDS: ASPIRIN 81 MG TAB.CHEW PO SCH (09:50)
[2016-12-26] MEDS: DOCUSATE SODIUM 100 MG CAPSULE PO SCH ×2 (09:51→17:12)
[2016-12-26] MEDS: TORSEMIDE 20 MG TABLET PO SCH ×3 (09:54→17:12)
[2016-12-26] MEDS: APIXABAN 2.5 MG TABLET PO SCH ×2 (09:54→22:04)
[2016-12-26] MEDS: CARVEDILOL 3.125 MG TABLET PO SCH ×2 (09:54→22:04)
[2016-12-26] MEDS: FERROUS GLUCONATE 324 MG PO SCH ×3 (09:55→17:13)
[2016-12-26] MEDS: MAGNESIUM OXIDE 400 MG TABLET PO SCH ×2 (09:56→17:12)
[2016-12-26] MEDS: GABAPENTIN 100 MG CAPSULE PO SCH ×3 (09:57→17:12)
[2016-12-26] MEDS: CLOPIDOGREL BISULFATE 75 MG TABLET PO SCH (09:57)
[2016-12-26] MEDS: CYANOCOBALAMIN 500 MCG TABLET PO SCH (09:57)
[2016-12-26] MEDS: DOXYCYCLINE HYCLATE (100 MG) 100 MG TABLET PO SCH ×2 (09:57→22:03)
[2016-12-26] MEDS: METOLAZONE 2.5 MG TABLET PO SCH (09:58)
[2016-12-26] MEDS: CHOLECALCIFEROL 1,000 UNIT TABLET (VIT D3) PO SCH (09:58)
[2016-12-26] MEDS: ASCORBIC ACID 500 MG TABLET PO SCH (09:58)
[2016-12-26] MEDS: INSULIN DETEMIR 100 UNIT/ML CARTRIDGE SQ SCH (10:00)
[2016-12-26] MEDS: AMILORIDE HCL 5 MG TABLET PO SCH (10:30)
[2016-12-26] MEDS: INSULIN REGULAR, HUMAN 100 UNIT/ML 3 ML VIAL SQ PRN ×3 (12:59→22:23)
[2016-12-26] MEDS: DIGOXIN 0.125 MG TABLET PO SCH (13:00)
[2016-12-26] MEDS: D5W IV SCH (17:20)
[2016-12-26] MEDS: MILRINONE LACTATE IV SCH (17:20)
--- NOTE | 2016-12-26 20:11 | NUR ---
ONLINE MARKETING ANALYST. INITIAL ASSESSMENT. RECEIVED THE PT REST ON THE BED. AWAKE, ALERT, FOLLOW COMMANDS. PT ON ROOM AIR. SAT 95%.ALL AROUND PATTERNMAKER SHOWING JUNCTIONAL. KATELYN AKA. AFEBRILE. WILL CONTINUE TO MONITOR VITALS.
[2016-12-26 21:54] LABS: MAGNESIUM 1.9 mg/dL (1.8-2.4)
[2016-12-26] MEDS: ATORVASTATIN 40 MG TABLET PO SCH (22:04)
[2016-12-26] MEDS: Magnesium 1GM/D5W 100ML PREMIX 100 ML IV SCH ×2 (22:49→23:40)
--- NOTE | 2016-12-26 23:59 | NUR ---
SHAPING MACHINE OPERATOR. MAG 1.9. CALLER AND MAG 2GM ORDERED.
[2016-12-27] VITALS (51 sets, daily range): BP systolic 17–146; BP diastolic 11–109
[2016-12-27] MEDS ORDERED: BENZONATATE 100 MG CAPSULE PO PRN (00:30)
--- NOTE | 2016-12-27 03:34 | NUR ---
STORAGE MANAGEMENT CONSULTANT. AM CARE.ORAL CARE, BED BATH GIVEN. LINEN CHANGED. REMAINING SAME HOME MEDICINE RUNNING. HOB ELEVATED. AFEBRILE. TURN AND REPOSITION Q2H, WILL CONTINUE TO MONITOR VITALS.
[2016-12-27 04:39] LABS: BASOPHILS % (AUTO) 0.3 % (0.0-2.0); EOSINOPHILS # (AUTO) 0.5 /CMM (0.0-0.7); EOSINOPHILS % (AUTO) 3.8 % (0.0-6.0); HEMATOCRIT 47 % (39-51); HEMOGLOBIN 15.5 g/dL (13.5-17.5); LYMPHOCYTES # (AUTO) 0.8 /CMM (0.8-4.8); MEAN CORPUSCULAR HEMOGLOBIN 27 PG (26.0-33.0); MEAN CORPUSCULAR HGB CONC 33 g/dl (31.0-36.0); MEAN CORPUSCULAR VOLUME 81 fL (80-96); MONOCYTES % (AUTO) 7.3 % (2.0-12.0); NEUTROPHILS # (AUTO) 11.5 /CMM (1.8-8.9); NEUTROPHILS % (AUTO) 82.6 % (43.0-81.0); PLATELET COUNT (AUTO) 209 /CMM (150-450); RDW COEFFICIENT OF VARIATION 24.5 (11.5-15.0); RED BLOOD CELL COUNT(AUTO) 5.83 MIL/uL (4.5-6.0); WHITE BLOOD COUNT (AUTO) 13.9 K/uL (4.3-11.0)
[2016-12-27 04:53] LABS: CALCIUM, SERUM 9.1 mg/dL (8.5-10.1); CREATININE 1.7 mg/dL (0.6-1.3); PHOSPHORUS 3.7 mg/dL (2.5-4.9); POTASSIUM 3.8 mmol/L (3.5-5.1)
[2016-12-27] MEDS: POTASSIUM CHLORIDE 20 MEQ TAB.PRT.SR PO SCH (06:42)
--- NOTE | 2016-12-27 07:32 | NUR ---
SAMPLE TAILOR RECEIVED PATIENT FROM THE PREVIOUS SHIFT. SLEEPING COMFORTABLY. AROUSABLE. NO ACUTE DISTRESS. AFEBRILE. BP MONITORED. FAMILY AT BEDSIDE. ELECTROLYTES MONITORED. USES URINAL. TURNED AND REPOSITIONED FOR COMFORT AND WOUND PREVENTION. WILL CONTINUE TO MONITOR AND PROVIDE CARE.
[2016-12-27] MEDS: CARVEDILOL 3.125 MG TABLET PO SCH (09:00)
[2016-12-27] MEDS ORDERED: POTASSIUM CHLORIDE 20 MEQ TAB.PRT.SR PO ONE (09:00)
[2016-12-27] MEDS: BLOOD SUGAR DIAGNOSTIC 1 EACH STRIP IN SCH ×3 (09:10→17:58)
[2016-12-27] MEDS: GABAPENTIN 100 MG CAPSULE PO SCH ×3 (09:16→18:04)
[2016-12-27] MEDS: TORSEMIDE 20 MG TABLET PO SCH ×3 (09:16→18:04)
[2016-12-27] MEDS: DOXYCYCLINE HYCLATE (100 MG) 100 MG TABLET PO SCH (09:16)
[2016-12-27] MEDS: DOCUSATE SODIUM 100 MG CAPSULE PO SCH ×2 (09:16→18:01)
[2016-12-27] MEDS: CLOPIDOGREL BISULFATE 75 MG TABLET PO SCH (09:16)
[2016-12-27] MEDS: CYANOCOBALAMIN 500 MCG TABLET PO SCH (09:16)
[2016-12-27] MEDS: CHOLECALCIFEROL 1,000 UNIT TABLET (VIT D3) PO SCH (09:16)
[2016-12-27] MEDS: ASPIRIN 81 MG TAB.CHEW PO SCH (09:17)
[2016-12-27] MEDS: AMIODARONE HCL 200 MG TABLET PO SCH ×3 (09:18→18:03)
[2016-12-27] MEDS: METOLAZONE 2.5 MG TABLET PO SCH (09:18)
[2016-12-27] MEDS: APIXABAN 2.5 MG TABLET PO SCH (09:18)
[2016-12-27] MEDS: ASCORBIC ACID 500 MG TABLET PO SCH (09:18)
[2016-12-27] MEDS: FERROUS GLUCONATE 324 MG PO SCH ×3 (09:19→18:04)
[2016-12-27] MEDS: AMILORIDE HCL 5 MG TABLET PO SCH (09:20)
[2016-12-27] MEDS: INSULIN DETEMIR 100 UNIT/ML CARTRIDGE SQ SCH (09:24)
[2016-12-27] MEDS: INSULIN LISPRO/ASPART 100 UNIT/ML CARTRIDGE SQ SCH ×3 (09:24→18:05)
[2016-12-27] MEDS: INSULIN REGULAR, HUMAN 100 UNIT/ML 3 ML VIAL SQ PRN ×3 (09:25→18:06)
[2016-12-27] MEDS: POTASSIUM CHLORIDE 20 MEQ POWDER PACKET PO SCH ×2 (11:28→18:04)
[2016-12-27] MEDS: MAGNESIUM OXIDE 400 MG TABLET PO SCH ×2 (12:11→18:04)
[2016-12-27] MEDS: DIGOXIN 0.125 MG TABLET PO SCH (12:13)
--- NOTE | 2016-12-27 16:50 | NUR ---
MARKETING OFFICER BANKRUPTCY JUDGE MADE AWARE OF PATIENT'S MG LEVEL 1.9. K LEVEL 4.2. NO NEW ORDERS AT THIS TIME.
--- NOTE | 2016-12-27 17:05 | NUR ---
ENROUTE CONTROLLER PATIENT NOTED TO HAVE CHEST PAIN. PATIENT SAID HE FELT THE DEFIBRILATOR FIRING. PATIENT IS ALERT AND AWAKE. COLD AND CLAMMY. AFAMILY AT BEDSIDE. PATIENT PLACED ON NON -REBREATHER MASK. PACER PADS PLACED. PATIENT IS BRADYCARDIC BUT HAS A FAINT PULSE. BLUEPRINT MAKER CONTACTED. RECEIVED ORDERS FOR EXTERNAL PACING AND DOPAMINE. ER PHYSICIAN ARRIVED BUT DECIDED NOT TO ELECTIVELY INTUBATE AT THIS TIME. BLUEPRINT MAKER AWARE OF PATIENT'S CURRENT LABS. PATIENT BEING EXTERNALLY PACED. PM NURSE AT BEDSIDE AND REPORT GIVEN. PATIENT BEING PACED AT 26MA WITH A RATE OF 90 AT THIS TIME PER BLUEPRINT MAKER ORDER. Addendum: 12/27/16 at 1950 by ARJUN TUTTLE RN ENROUTE CONTROLLER CHARTED AT THE WRONG TIME BY ERROR.
--- NOTE | 2016-12-27 17:57 | NUR ---
SPONGE CLIPPER GLUCOSE LEVEL RECHECK 337. WILL ADMINISTER INSULIN AND RECHECK IN AN HR.
[2016-12-27] MEDS: D5W IV SCH (18:05)
[2016-12-27] MEDS: MILRINONE LACTATE IV SCH (18:05)
--- NOTE | 2016-12-27 19:05 | NUR ---
POT RUNNER PATIENT NOTED TO HAVE CHEST PAIN. PATIENT SAID HE FELT THE DEFIBRILATOR FIRING. PATIENT IS ALERT AND AWAKE. COLD AND CLAMMY. AFAMILY AT BEDSIDE. PATIENT PLACED ON NON -REBREATHER MASK. PACER PADS PLACED. PATIENT IS BRADYCARDIC BUT HAS A FAINT PULSE. DELIVERY COORDINATOR CONTACTED. RECEIVED ORDERS FOR EXTERNAL PACING AND DOPAMINE. ER PHYSICIAN ARRIVED BUT DECIDED NOT TO ELECTIVELY INTUBATE AT THIS TIME. DELIVERY COORDINATOR AWARE OF PATIENT'S CURRENT LABS. PATIENT BEING EXTERNALLY PACED. PM NURSE AT BEDSIDE AND REPORT GIVEN. PATIENT BEING PACED AT 26MA WITH A RATE OF 90 AT THIS TIME PER DELIVERY COORDINATOR ORDER.
[2016-12-27] MEDS ORDERED: IV SET PRIMARY PUMP SET 1 EA INFUS.SET MC ONE (19:20)
[2016-12-27] MEDS ORDERED: DOPamine 400MG/D5W 250ML RTU 250 ML IV ONE (19:20)
[2016-12-27] MEDS ORDERED: Magnesium 1GM/D5W 100ML PREMIX 100 ML IV ONE (19:30)
[2016-12-27] MEDS ORDERED: DOPamine 400 MG/D5W 250 ML RTU PIGGYBACK IV PRN (19:30)
[2016-12-27] MEDS ORDERED: Magnesium 1GM/D5W 100ML PREMIX PIGGYBACK IV ONE (19:30)
--- NOTE | 2016-12-27 19:31 | NUR ---
[id number] ARMOR CREWMAN REPORT GIVEN TO RECEIVING RN FOR CONTINUITY OF CARE.
--- NOTE | 2016-12-27 19:35 | NUR ---
WARDROBE MISTRESS PATIENT'S MAGNESIUM INFUSION STARTED PER P[facility]OSPITAL PRODUCTS ASSEMBLER ORDER.
--- NOTE | 2016-12-27 19:40 | NUR ---
SONJA PAINTER CALLED PLEASE REFER TO CODE BLUE RECORD.
[2016-12-27] MEDS ORDERED: ATROPINE SULFATE 1 MG/10 ML DISP.SYRIN IV ONE (20:06)
[2016-12-27] MEDS ORDERED: SODIUM BICARBONATE SYR 50 MEQ/50 ML DISP.SYRIN IV ONE (20:06)
[2016-12-27] MEDS ORDERED: EPINEPHRINE (1:10,000) SYRINGE 1 MG/10 ML DISP.SYRIN IVP ONE (20:06)
[2016-12-27] MEDS ORDERED: CALCIUM CHLORIDE 1,000 MG/10 ML DISP.SYRIN IV ONE (20:06)
[2016-12-27] MEDS ORDERED: FEE EMEERGENCY 1 MIN EA MC ONE (20:06)
--- NOTE | 2016-12-27 20:07 | NUR ---
CODE BLUE ENDED AND PRONOUNCED BY GABO GONZALEZ MD.
--- NOTE | 2016-12-27 20:30 | NUR ---
CALLED [facility] SPOKE TO DELPHINE.UPDATED OF PATIENT STATUS.CASE NO. [id number].
--- NOTE | 2016-12-27 20:53 | NUR ---
RAMOS FROM [facility] CALLED.REQUESTED ABOUT PATIENT DEMOGRAPHIC AND MEDICAL HISTORY. PROVIDED PER PATIENT CHART.PER RAMOS PATIENT CAN BE RELEASE TO [facility] [place] NOT A CANDIDATE.
--- NOTE | 2016-12-27 21:30 | NUR ---
POSTMORTEM CARE DONE.CALLED [facility] FOR BODY PERSONNEL ANALYST.
--- NOTE | 2016-12-27 21:53 | NUR ---
PATIENT BODY PICKED UP BY MARIAMA RYDER.BELONGINGS GIVEN TO .
[2016-12-28] MEDS ORDERED: INSULIN LISPRO/ASPART 100 UNIT/ML CARTRIDGE SQ SCH (07:30)
== END 2016-12-27 20:07 | disposition expired | DRG 196 ==
LOC: ER 01:18 → TELE 02:28 → ICU 04:57
PROVIDERS: ADMIT Family Medicine; ATTEND Nurse Practitioner Acute Care
PROC: 5A12012 Performance of Cardiac Output, Single, Manual (ICD-10-PCS; principal; 2016-12-27)
DX: I49.01 Ventricular fibrillation (principal); N17.0 Acute kidney failure with tubular necrosis; I21.4 Non-ST elevation (NSTEMI) myocardial infarction; I50.22 Chronic systolic (congestive) heart failure; G62.9 Polyneuropathy, unspecified; I48.91 Unspecified atrial fibrillation; E83.42 Hypomagnesemia; N18.9 Chronic kidney disease, unspecified; I25.10 Atherosclerotic heart disease of native coronary artery without angina pectoris; E78.5 Hyperlipidemia, unspecified; K21.9 Gastro-esophageal reflux disease without esophagitis; E11.22 Type 2 diabetes mellitus with diabetic chronic kidney disease; F32.9 Major depressive disorder, single episode, unspecified; E87.1 Hypo-osmolality and hyponatremia; D72.829 Elevated white blood cell count, unspecified; Z86.718 Personal history of other venous thrombosis and embolism; Z89.612 Acquired absence of left leg above knee; Z89.611 Acquired absence of right leg above knee; E78.00 Pure hypercholesterolemia, unspecified; E87.6 Hypokalemia; I25.5 Ischemic cardiomyopathy; I47.2 Ventricular tachycardia; Z79.82 Long term (current) use of aspirin; Z79.899 Other long term (current) drug therapy; Z89.511 Acquired absence of right leg below knee; Z95.5 Presence of coronary angioplasty implant and graft; I13.0 Hypertensive heart and chronic kidney disease with heart failure and stage 1 through stage 4 chronic kidney disease, or unspecified chronic kidney disease
CPT/HCPCS: 36415; 71010-TC; 80048-TC; 80061-TC; 80162-TC; 82962-TC; 83735-TC; 84100-TC; 84132-TC; 84484-TC; 85025-TC; 85730-TC; 87081-TC; A4606; J0171; J0461; J1265; J1815; J2260; J3475; J3480; J3490; J7050; J7060; Z7610